=== PATIENT | female | born 1940 | race Caucasian/White ===

== ENCOUNTER 2024-06-04 08:04 | Emergency (ER) | payer OTHER, SELFPAY ==
[2024-06-04 08:35] VITALS: BMI 23.0
[2024-06-04 08:36] VITALS: BP 154/82
[2024-06-04 08:59] LABS: Urine Albumin Negative (Neg - Trace); Urine Bilirubin Negative (Negative); Urine Character Clear (Clear); Urine Color Yellow; Urine Glucose Negative (Negative); Urine Ketone Negative (Negative); Urine Leukocyte Negative (Negative); Urine Nitrite Negative (Negative); Urine Occult Blood Negative (Negative); Urine Specific Gravity 1.005 (<1.030); Urine Urobilinogen Negative (Neg - 1+)
[2024-06-04 09:00] VITALS: BP 155/79
[2024-06-04 09:07] LABS: % Basophils 0.5 % (0-2); % Eosinophils 2.5 % (0-6); % Immature Granulocytes 0.5 % (0-0.5); % Lymphocytes 14.6 % (20.5-51.1); % Monocytes 9.1 % (1.7-9.3); % Neutrophils 72.8 % (42.2-75.2); ALT (SGPT) 27 U/L (0-35); AST (SGOT) 29 U/L (14-36); Absolute Basophils 0.1 10^3/uL (0-0.2); Absolute Eosinophils 0.3 10^3/uL (0-0.7); Absolute Immature Granulocytes 0.1 10^3/uL (0-0.05); Absolute Lymphocytes 1.5 10^3/uL (1.2-3.4); Absolute Monocytes 0.9 10^3/uL (0.1-0.6); Absolute Neutrophils 7.4 10^3/uL (1.4-6.5); Albumin 3.7 g/dl (3.5-5.0); Alkaline Phosphatase 154 U/L (38-126); Blood Urea Nitrogen 15 mg/dl (7-17); Calcium 9.1 mg/dl (8.4-10.2); Carbon Dioxide 26 mmol/L (22-30); Chloride 104 mmol/L (98-107); Estimated Creatinine Clearance 40 ml/min; Glucose 95 mg/dl (70-99); Hematocrit 33.9 % (37.0-47.0); Hemoglobin 11.6 g/dL (12.0-16.0); Mean Corp Hgb Conc. 34.2 g/dL (33.0-37.0); Mean Corpuscular Volume 90.6 fL (81.0-99.0); Mean Platelet Volume 10.8 fL (7.4-10.4); Nucleated Red Blood Cells % 0 %; Platelet Count 299 10^3/uL (130-400); Potassium 4.2 mmol/L (3.5-5.1); Red Blood Cell Count 3.74 10^6/uL (4.20-5.40); Red Cell Dist. Width 14.1 % (11.5-14.5); Sodium 135 mmol/L (135-145); Total Bilirubin 0.5 mg/dl (0.2-1.3); White Blood Cell Count 10.2 10^3/uL (4.8-10.8); eGFR > 60.00
--- NOTE | 2024-06-04 09:18 | ED.GENMED ---
History of Present Illness
General
Chief Complaint: Dizziness
Source: patient and ambulance crew
Exam Limitations: none
Time Seen by Provider: 06/04/24 09:03
Nursing documentation reviewed up to this point in time: agreed with
History of Present Illness
History of Present Illness:
84-year-old female presents emergency room complaining of headache, dizziness and weakness. She fell 2 weeks ago, and has been dizzy and weak with a headache ever since. There are no aggravating or alleviating factors. She did, however, feel more
dizzy when she got up and felt like she was leaning to the left. When she fell 2 weeks ago, she went to [place], and states that it x-rays of her neck and spine, and was diagnosed with compression fracture of T4 and a sternal fracture. She is
unsure if they performed any CT scans.
Past History
Past History
ED Past Medical History: GERD, HTN, Hypercholesterolemia, Psychiatric (anxiety) and Other (Sternal fracture, T4 compression fracture)
ED Past Surgical History: Other (Cyst on LIver removed, Benign)
Social History
Tobacco: Non-smoker
Alcohol: Occasional
Personal:
Living: with family
Review of Systems
Review of Systems
Allergies reviewed?: Yes
All Other Systems: Not applicable
Constitutional: Reports no symptoms
EENT: Reports no symptoms
Respiratory: Reports no symptoms
Cardiac: Reports no symptoms
ABD/GI: Reports no symptoms
: Reports no symptoms
Musculoskeletal: Reports neck pain and back pain
Skin: Reports no symptoms
Neurological: Reports dizzy and headache
Endocrine: Reports no symptoms
Hematologic/Lymphatic: Reports no symptoms
Psychiatric: Reports no symptoms
Phy Exam
Physical Exam
Physical Exam:
Physical Exam
General: no apparent distress, not acutely ill
Neck: supple. no meningeal signs. normal posterior pharynx
Heart: s1/s2 regular rate and rhythm, no murmur. equal radial
pulses.
HEENT: Pupils equal round reactive to light, EOMI
Lungs: no acute respiratory distress. clear bilaterally
Abdomen: normal bowel sounds. not tender. no CVAT
Neuro: alert and oriented. no focal neurological deficits cranial nerves II through XII intact
Skin: no rash
Psychiatric: well kept. interactive and cooperative
Extremities: no edema. no calf tenderness. negative homans. good distal pulses
Scores
NIH Stroke Score
Level of Consciousness: 0 - Alert
LOC Questions: 0-Answers both correctly
LOC Commands: 0-Performs both correctly
Best Horizontal Gaze: 0-Normal
Visual Prakash: 0=Normal, no visual loss
Facial Palsy: 0=Normal, symmetrical
Motor - Right Arm: 0=No drift 10 seconds
Motor - Left Arm: 0=No drift 10 seconds
Motor - Right Le-No drift 5 seconds
Motor - Left Le-No drift 5 seconds
Limb Ataxia: 0-Absent
Sensation: 0-Normal
Best Language: 0-No aphasia
Dysarthria: 0-Normal
Extinction and Inattention: 0-No abnormality
Total Score:: 0
Course
Orders/Labs/Results
Orders:
Orders
06/04/24 08:22
EKG [Electrocardiogram (*1)] Urgent
Reason for Study: Vertigo / Dizzy
EKG- Treatment ONCE
06/04/24 08:45
CMP [Comprehensive Metabolic Panel] Urgent
Complete Blood Count/With Diff Urgent
Urinalysis Reflex To Culture Urgent
Date Specimen was Collected: 06/04/24
Time Specimen was Collected: 08:38
06/04/24 09:17
CT Head & Neck Angio W/wo IV Urgent
Comment:
Reason For Exam: fall, head, neck pain, dizziness
Abnormal Lab Results
06/04/24
08:45
RBC 3.74 L 10^6/uL
(4.20-5.40)
Hgb 11.6 L g/dL
(12.0-16.0)
Hct 33.9 L %
(37.0-47.0)
MPV 10.8 H fL
(7.4-10.4)
Abs Immat Gran (auto) 0.1 H 10^3/uL
(0-0.05)
Absolute Neuts (auto) 7.4 H 10^3/uL
(1.4-6.5)
Absolute Monos (auto) 0.9 H 10^3/uL
(0.1-0.6)
Lymphocytes % 14.6 L %
(20.5-51.1)
Creatinine 0.5 L mg/dL
(0.6-1.0)
Alkaline Phosphatase 154 H U/L
(38-126)
Total Protein 6.0 L g/dl
(6.3-8.2)
06/04/24 08:45
06/04/24 08:45
Vital Signs
Initial and Last Documented VS:
Initial Vital Signs
Temp Pulse Resp Pulse Ox
98.2 F 89 16 95
06/04/24 08:25 06/04/24 08:25 06/04/24 08:25 06/04/24 08:25
Last Documented Vital Signs
Temp Pulse Resp BP Pulse Ox
98.2 F 95 25 182/94 94
06/04/24 08:25 06/04/24 12:30 06/04/24 12:30 06/04/24 12:00 06/04/24 12:30
MDM/Problems Addressed
Differential Diagnosis Includes:
CVA, vertigo, intracranial hemorrhage
MDM/Problems Addressed:
84-year-old female with dizziness, unclear etiology. No signs of intracranial hemorrhage or dissection. Do not suspect CVA. Incidental 2 mm basilar artery bulbous tip, possible small aneurysm. Discussed with Dr. Davidson, who recommends follow-up
with cerebrovascular neurosurgeon. Stable for discharge.
Chronic conditions affecting care: Other (Migraines)
*Radiology
Radiology exam reviewed: radiology read reviewed (CTA head and neck no acute findings, possible small aneurysm in basilar artery.)
*Pulse Oximetry
Patient hypoxic: no
*EKG
Interpreted by ED Provider?: Yes
EKG Intrepretation Date: 06/04/24
EKG Intrepretation Time: 08:27
Interpretation: normal
Comparison EKG: no changes
Heart Rate: 87
Rate: normal
Rhythm: sinus
[place]: normal axis
Interval: normal interval
QRS Pattern: normal QRS
Ischemia: no ischemia
*Range Conservationist Interpretation
Rate: normal
Interpretation: normal
Heart Rate: 85
Rhythm: sinus
*Critical Care Note
Total Time (30-74mins, 75-104mins- exclusive of procedures): Not Applicable
Patient Management
Social determinants of health affecting care: Strong social support
Discussion with other providers: Casualty Claims Supervisor (Neurosurgeon Dr. Davidson)
Escalation/DeEscalation of care consider admission/obs:
Admit not indicated
ED Attending Note
-
Portions of this chart may have been created with voice recognition software.� Occasional wrong word or��sound alike� substitutions may have occurred due to the inherent limitations of voice recognition software.
Discharge Plan
Departure
Patient Disposition: Home (Routine Discharge)
Date of Disposition: 06/04/24
Time of Disposition: 13:00
Patient with high blood pressure during this ER visit?: Yes
Condition: Good
Discharge Problem:
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
Instructions: Dizziness, Adult ED, Dizziness
Prescriptions:
No Action
lisinopril 5 MG tablet
5 mg PO DAILY
cyanocobalamin (vitamin B-12) 1,000 MCG tablet
1,000 mcg PO DAILY
acetaminophen 325 MG tablet
650 mg PO Q4HPRN PRN (Reason: mild pain/EAST/temp> 100.4F) Qty: 0 0RF
famotidine 20 MG tablet
20 mg PO BID 0RF
tramadol 50 MG tablet
50 mg PO Q8HPRN PRN (Reason: pain) Qty: 20 0RF
Referrals:
Sanna Mari MD [Non-Admitting Privileges] - Call in 1-3 days for appt
Sahara Lawrence MD [Family Provider] -
Activity Restrictions/Additional Instructions:
Follow-up with Dr. Mari at [facility] for further evaluation of the finding on your CT angiography. It was a small area that is possibly an aneurysm.
Interventions
Interventions:
*Risk Screen - Suicide Last Done: 06/04/24 08:25
*General Assessment Last Done: 06/04/24 08:25
*Neglect/Abuse Screening Last Done: 06/04/24 08:25
ED- Fall Risk Assessment Last Done: 06/04/24 08:35
*ED COVID-19 Vaccine History Last Done: 06/04/24 08:25
ED- Neurological Assessment Last Done: 06/04/24 08:35
ED- Cardiac Assessment Last Done: 06/04/24 08:35
ED Swallowing Screen Last Done: 06/04/24 08:55
Discharge Date and Time
Print Language: ESTONIAN
[2024-06-04 10:00] VITALS: BP 132/70
[2024-06-04 11:00] VITALS: BP 150/80
[2024-06-04 12:00] VITALS: BP 182/94
--- NOTE | 2024-06-04 15:39 | EDRN ---
Reviewed discharge instructions with patient. Verbalized understanding. Taken to lobby in wheelchair.
[2024-06-04 15:40] VITALS: BP 145/70
== END 2024-06-04 15:35 | disposition home or self-care (01) ==
LOC: EMR 08:04
PROVIDERS: Emergency Medicine; EMERGENCY PHYSICIAN Emergency Medicine; FAMILY PHYSICIAN Internal Medicine Geriatric Medicine
DX: R42 Dizziness and giddiness (principal); K21.9 Gastro-esophageal reflux disease without esophagitis; I10 Essential (primary) hypertension; E78.00 Pure hypercholesterolemia, unspecified; F41.9 Anxiety disorder, unspecified; I65.23 Occlusion and stenosis of bilateral carotid arteries; I67.82 Cerebral ischemia
CPT/HCPCS: 99284; 70496; 70498; 80053; 81003; 85025; 93005; Q9967

== ENCOUNTER 2024-06-14 11:30 | Emergency (ER) | payer OTHER, SELFPAY ==
[2024-06-14 11:33] VITALS: BP 160/77; BMI 20.3
[2024-06-14 11:34] VITALS: BP 160/77
--- NOTE | 2024-06-14 12:44 | ED.MUSCINJ ---
HPI-Injury
General
Chief Complaint: Fall
Source: patient
Exam Limitations: none
Time Seen by Provider: 06/14/24 11:42
History of Present Illness-Injury
Initial Injury comments:
84-year-old female presents from [facility] independent living after a fall. She states she lost her balance and fell onto her knee and then fell backwards. She complains of left knee pain and neck pain. She thinks may have hit her head. No
anticoagulants. She typically ambulates with a walker. No other complaints at this time
Past History
Past History
ED Past Medical History: GERD, HTN, Hypercholesterolemia, Psychiatric (anxiety) and Other (Sternal fracture, T4 compression fracture)
ED Past Surgical History: Other (Cyst on LIver removed, Benign)
Social History
Tobacco: Non-smoker
Alcohol: Occasional
Personal:
Living: with family
Phy Exam
Physical Exam
Physical Exam:
General: Well-appearing female no acute respiratory distress
HEENT: Normocephalic no obvious scalp abrasion or hematoma
Heart: Regular rate and rhythm
Lungs: Clear no wheeze
Abdomen soft nontender nondistended no guarding rebound normal bowel sounds
Extremities: No cyanosis or edema
Musculoskeletal exam: Left knee tender anteriorly without deformity. The cervical spine mildly diffusely tender
Injury Course
Orders/Labs/Results
Orders:
Orders
06/14/24 12:01
CT Cervical Spine W/o Iv Contr Urgent
Comment:
Reason For Exam: fall
CT Head W/o Iv Contrast Urgent
Comment:
Reason For Exam: fall
CR Knee - Left 4 Or More View* Urgent
Comment:
Reason For Exam: fall
MDM/Problems Addressed
Differential Diagnosis Includes:
Mechanical fall. Left knee pain and neck pain. Consider fracture versus contusion. CT of head and cervical spine pending. X-ray left knee pending.
*Critical Care Note
Total Time (30-74mins, 75-104mins- exclusive of procedures): Not Applicable
Update Note
Update Note:
CT of head and cervical spine negative x-ray left knee negative. Patient reassured. Stable for discharge
ED Attending Note
-
Portions of this chart may have been created with voice recognition software.� Occasional wrong word or��sound alike� substitutions may have occurred due to the inherent limitations of voice recognition software.
Discharge Plan
Departure
Patient Disposition: Home (Routine Discharge)
Date of Disposition: 06/14/24
Time of Disposition: 13:46
Patient with high blood pressure during this ER visit?: No
Discharge Problem:
cervical strain
Instructions: Preventing falls in adults
Prescriptions:
No Action
lisinopril 5 MG tablet
5 mg PO DAILY
cyanocobalamin (vitamin B-12) 1,000 MCG tablet
1,000 mcg PO DAILY
acetaminophen 325 MG tablet
650 mg PO Q4HPRN PRN (Reason: mild pain/EAST/temp> 100.4F) Qty: 0 0RF
famotidine 20 MG tablet
20 mg PO BID 0RF
tramadol 50 MG tablet
50 mg PO Q8HPRN PRN (Reason: pain) Qty: 20 0RF
Referrals:
Sahara Lawrence MD [Family Provider] -
Activity Restrictions/Additional Instructions:
Return if needed
Interventions
Interventions:
*Risk Screen - Suicide Last Done: 06/14/24 11:33
*General Assessment Last Done: 06/14/24 11:33
*Neglect/Abuse Screening Last Done: 06/14/24 11:33
ED- Fall Risk Assessment Last Done: 06/14/24 11:39
*ED COVID-19 Vaccine History Last Done: 06/14/24 11:33
*Nursing Disposition Last Done: 06/14/24 15:28
ED-Musculoskeletal Assessment Last Done: 06/14/24 11:39
ED- Neurological Assessment Last Done: 06/14/24 11:39
ED-Skin Assessment Last Done: 06/14/24 11:39
Discharge Date and Time
Discharge Date/Time: 06/14/24 15:30
Print Language: ITALIAN
[2024-06-14 15:28] VITALS: BP 156/78
== END 2024-06-14 15:30 | disposition home or self-care (01) ==
LOC: EMR 11:30
PROVIDERS: EMERGENCY PHYSICIAN Student in an Organized Health Care Education/Training Program; FAMILY PHYSICIAN Internal Medicine Geriatric Medicine
DX: S16.1XXA Strain of muscle, fascia and tendon at neck level, initial encounter (principal); M25.562 Pain in left knee; W19.XXXA Unspecified fall, initial encounter; I10 Essential (primary) hypertension; E78.00 Pure hypercholesterolemia, unspecified; M48.54XA Collapsed vertebra, not elsewhere classified, thoracic region, initial encounter for fracture; K21.9 Gastro-esophageal reflux disease without esophagitis; F41.9 Anxiety disorder, unspecified; Z88.0 Allergy status to penicillin
CPT/HCPCS: 99284; 70450; 72125; 73564

== ENCOUNTER 2024-08-02 12:10 | Emergency (ER) | payer SELFPAY ==
[2024-08-02] VITALS (13 sets, daily range): BP systolic 155–224; BP diastolic 84–137; PULSE 79–90
--- NOTE | 2024-08-02 12:38 | ED.GENMED ---
History of Present Illness
General
Chief Complaint: Abdominal Pain
Source: patient
Exam Limitations: none
Time Seen by Provider: 08/02/24 12:12
Nursing documentation reviewed up to this point in time: agreed with
History of Present Illness
History of Present Illness:
pt is a 84 y/o F h/o HTN, HLD, chornic constipation, anxiety
says she woke up at 2 am and took xanax 0.5 mg which is typical for her
then around 3 or 4 am she went to stand up to go to the bathroom and felt dizzy like the room was spinning
she laid back down and propped herslef up and the dizziness stopped. she went back to sleep some
and then she had to move bowels, had some abdominal pain; and needed to disimpact herself which is usual fo rher recently in the past few months
she had taken stool softener and doculax last night
pt says her abd pain resolved after she di d the manual disimpaction
she denies fever, chills, nausea, vomiting, cp, sob, headache, vision changes, slurred speech, weakness.
pt says she has never had vertigo like symptoms before
she can turn her head easily side to side in the stretcher without difficulty
she thinks maybe she was dizzy from taking the xanax
pt hasn't been eating as well recently; doesn't really have an appetite;
she did fall a few months ago and had some idzziness following that fall
she hit the back of her head
pt had CTA showing small bulbous appearance of basilar artery;w as told to F/U nguyễn Caballero but she never did
Past History
Past History
ED Past Medical History: GERD, HTN, Hypercholesterolemia, Psychiatric (anxiety) and Other (Sternal fracture, T4 compression fracture)
ED Past Surgical History: Other (Cyst on LIver removed, Benign)
Social History
Tobacco: Non-smoker
Alcohol: Occasional
Personal:
Living: with family
Review of Systems
Review of Systems
Allergies reviewed?: Yes
All Other Systems: Not applicable
Phy Exam
Physical Exam
Physical Exam:
henERAL: Alert , in no apparent distress
HEAD: NCAT
EYE: pupils equal and reactive, no nystagmus, no photophobia
NECK: severe kyphosis, limited ROM due to arthritis
ENT: o/p clr, mmm.
CARDIAC: Regular rate and rhythm . no edema
LUNGS: Clear breath sounds bilaterally, no acute respiratory distress, no wheezes/rales/rhonchi
ABDOMEN: Soft, without focal tenderness, no r/g, no cvat
NEUROLOGICAL: Alert and orientedx 4, cn intact, no facial asymmetry, 5/5 strength in UE/LE, sensation intact, romberg neg, ambulates with her wlaker steadily, neg pronator drift
SKIN: Warm and dry, skin intact.
MUSCULOSKELETAL: No edema, well perfused.
PSYCH: Normal and appropriate interaction.
Course
Orders/Labs/Results
Orders:
Orders
08/02/24 12:28
Complete Blood Count/With Diff Urgent
Comprehensive Metabolic Panel Urgent
Lipase Urgent
08/02/24 12:33
Electrocardiogram (*1) Urgent
Reason for Study: Vertigo / Dizzy
EKG- Treatment ONCE
Orthostatic VS- Treatment ONCE
Obstruct Series W/PA Chest [CR Obstruct Series W/pa Chest] Urgent
Comment:
Reason For Exam: constipation
08/02/24 14:15
CT Head & Neck Angio W/wo IV Urgent
Comment:
Reason For Exam: HEADACHE, DIZZY; ? ANEURYSM
08/02/24 18:21
Lisinopril [Zestril] 5 mg .ROUTE .STK-MED ONE
08/02/24 18:30
Lisinopril [Zestril] 5 mg PO NOW STA
08/02/24 18:57
Labetalol HCl [Trandate] 10 mg IV NOW STA
Abnormal Lab Results
08/02/24
12:28
RBC 3.81 L 10^6/uL
(4.20-5.40)
Hgb 11.9 L g/dL
(12.0-16.0)
Hct 35.2 L %
(37.0-47.0)
MCH 31.2 H pg
(27.0-31.0)
RDW 15.6 H %
(11.5-14.5)
MPV 11.1 H fL
(7.4-10.4)
Absolute Neuts (auto) 6.7 H 10^3/uL
(1.4-6.5)
Absolute Monos (auto) 0.8 H 10^3/uL
(0.1-0.6)
Lymphocytes % 14.6 L %
(20.5-51.1)
Sodium 134 L mmol/L
(135-145)
Creatinine 0.5 L mg/dL
(0.6-1.0)
08/02/24 12:28
08/02/24 12:28
Vital Signs
Initial and Last Documented VS:
Initial Vital Signs
Pulse Resp BP Pulse Ox
82 18 171/89 96
08/02/24 12:15 08/02/24 12:15 08/02/24 12:15 08/02/24 12:15
Last Documented Vital Signs
Temp Pulse Resp BP Pulse Ox
98.7 F 81 22 224/108 96
08/02/24 12:17 08/02/24 19:30 08/02/24 19:30 08/02/24 19:30 08/02/24 19:30
MDM/Problems Addressed
Differential Diagnosis Includes:
vertigo, lightheaded/orthostasis, medication side effect, constipation, less likely stroke, dissection
MDM/Problems Addressed:
84 y/o F with htn, hld
chornic constipation'
anxiety
here for mlutiple complaitns
woke up in the night and felt dizziness, that resolved with lying down
she has not had the dizziness recur
she has chorni cnstiopation and often times manually disimpacts herself
she did that today and she now no longer has abd pain
here she is repeatedly discussing about how 2 mo ago she fell and hit her head and has had intermittent dizzienss since
on her initial imaging in 06/01 cta head/neck she had a bulbous appearance of her basilar artery which could be an aneurysm
she was reocmmended to f/u neurosg
she has not had that eavluation
she thought she had a headache last week but it resolved; she is requestin CTA to reevaluate this area
despite vania ther dizziness has resolved, orhtos neg,labs urnemarkable
CTA still shows this minimal bulbous appearance of basilar region
3 mm
no change
when reassessed pt was pushign to have herself moved to the assisted living/inaptient medical side of [facility]
she feels that it is too much to be in independent
turns out this is an ogoing issue for her
she has a lot of anxiety about living by herself
but i spoke with patient's daughter and RN at [facility] - they are in the process of movin gher over but it will take time [facility] some nights and family also is there frequently
daughter was quite comfortable with her going back; says that with any small symptom causes her anxiety
pt an ddaughter comfortable with discharge back to facility
*Critical Care Note
Total Time (30-74mins, 75-104mins- exclusive of procedures): Not Applicable
ED Attending Note
-
Portions of this chart may have been created with voice recognition software.� Occasional wrong word or��sound alike� substitutions may have occurred due to the inherent limitations of voice recognition software.
Discharge Plan
Departure
Patient Disposition: Home (Routine Discharge)
Date of Disposition: 08/02/24
Time of Disposition: 16:13
Patient with high blood pressure during this ER visit?: Yes
Condition: Fair
Discharge Problem:
Dizziness, Constipation
Instructions: Constipation, Adult (DC), BLOOD PRESSURE
Prescriptions:
No Action
lisinopril 5 MG tablet
5 mg PO DAILY
cyanocobalamin (vitamin B-12) 1,000 MCG tablet
1,000 mcg PO DAILY
acetaminophen 325 MG tablet
650 mg PO Q4HPRN PRN (Reason: mild pain/EAST/temp> 100.4F) Qty: 0 0RF
famotidine 20 MG tablet
20 mg PO BID 0RF
tramadol 50 MG tablet
50 mg PO Q8HPRN PRN (Reason: pain) Qty: 20 0RF
Referrals:
Sahara Lawrence MD [Family Provider] - Follow up in 2-3 days
Activity Restrictions/Additional Instructions:
Were not sure what caused her dizziness but it seems to have resolved. Your CAT scan still shows that small irregularity one of your arteries which You should see a specialist for as recommended previously.
This is unlikely to be causing your symptoms.
Make sure to stay hydrated. Take your blood pressure medication
When you get up in the middle of the night make sure to sit on the side of the bed for moment before you stand up. Always use your walker.
For your constipation you should take Metamucil or Colace daily. You could use MiraLAX if needed. Follow-up with your doctor this week or next week. Return for any concerns
Interventions
Interventions:
*Risk Screen - Suicide Last Done: 08/02/24 12:17
*General Assessment Last Done: 08/02/24 12:17
*Neglect/Abuse Screening Last Done: 08/02/24 12:17
ED- Fall Risk Assessment Last Done: 08/02/24 12:17
*ED COVID-19 Vaccine History Last Done: 08/02/24 12:17
*Nursing Disposition Last Done: 08/02/24 19:39
VY-Gfxanw-Jsrdduybgt Assessment Last Done: 08/02/24 12:17
Discharge Date and Time
Discharge Date/Time: 08/02/24 19:40
Print Language: IRAQI
[2024-08-02 12:39] LABS: % Basophils 0.4 % (0-2); % Eosinophils 1.6 % (0-6); % Immature Granulocytes 0.4 % (0-0.5); % Lymphocytes 14.6 % (20.5-51.1); % Monocytes 8.5 % (1.7-9.3); % Neutrophils 74.5 % (42.2-75.2); Absolute Eosinophils 0.1 10^3/uL (0-0.7); Absolute Lymphocytes 1.3 10^3/uL (1.2-3.4); Absolute Monocytes 0.8 10^3/uL (0.1-0.6); Absolute Neutrophils 6.7 10^3/uL (1.4-6.5); Hematocrit 35.2 % (37.0-47.0); Hemoglobin 11.9 g/dL (12.0-16.0); Mean Corp Hgb Conc. 33.8 g/dL (33.0-37.0); Mean Corpuscular Hgb 31.2 pg (27.0-31.0); Mean Corpuscular Volume 92.4 fL (81.0-99.0); Mean Platelet Volume 11.1 fL (7.4-10.4); Nucleated Red Blood Cells % 0 %; Platelet Count 239 10^3/uL (130-400); Red Blood Cell Count 3.81 10^6/uL (4.20-5.40); Red Cell Dist. Width 15.6 % (11.5-14.5)
[2024-08-02 12:56] LABS: ALT (SGPT) 27 U/L (0-35); AST (SGOT) 32 U/L (14-36); Albumin 4.2 g/dl (3.5-5.0); Alkaline Phosphatase 92 U/L (38-126); Blood Urea Nitrogen 12 mg/dl (7-17); Calcium 9.6 mg/dl (8.4-10.2); Carbon Dioxide 22 mmol/L (22-30); Chloride 100 mmol/L (98-107); Glucose 95 mg/dl (70-99); Lipase 112 U/L (23-300); Potassium 4.3 mmol/L (3.5-5.1); Sodium 134 mmol/L (135-145); Total Bilirubin 0.5 mg/dl (0.2-1.3); Total Protein 6.4 g/dl (6.3-8.2); eGFR > 60.00
[2024-08-02] MEDS: ZESTRIL 5 MG PO (18:30)
[2024-08-02] MEDS: TRANDATE 10 MG IV (19:02)
== END 2024-08-02 19:40 | disposition home or self-care (01) ==
LOC: EMR 12:10
PROVIDERS: Physician Assistant; EMERGENCY PHYSICIAN Student in an Organized Health Care Education/Training Program; FAMILY PHYSICIAN Internal Medicine Geriatric Medicine
DX: K59.09 Other constipation (principal); R42 Dizziness and giddiness; R10.9 Unspecified abdominal pain; I10 Essential (primary) hypertension; E78.00 Pure hypercholesterolemia, unspecified; F41.9 Anxiety disorder, unspecified; M19.90 Unspecified osteoarthritis, unspecified site; G43.909 Migraine, unspecified, not intractable, without status migrainosus; K21.9 Gastro-esophageal reflux disease without esophagitis; Z91.81 History of falling; Z87.820 Personal history of traumatic brain injury; Z87.891 Personal history of nicotine dependence; Z88.0 Allergy status to penicillin
CPT/HCPCS: 99285; 96374; 70496; 70498; 74022; 80053; 83690; 85025; 93005; Q9967

== ENCOUNTER 2024-08-08 14:11 | Emergency (ER) | payer OTHER, SELFPAY ==
--- NOTE | 2024-08-08 14:44 | ED.GENMED ---
History of Present Illness
General
Chief Complaint: Musculo-Skeletal Complaint
Source: patient
Exam Limitations: none
Time Seen by Provider: 08/08/24 14:43
Nursing documentation reviewed up to this point in time: agreed with
History of Present Illness
History of Present Illness:
84-year-old female with past medical history of migraines, hypertension, hyperlipidemia presents emergency department today with concerns of left shoulder pain and neck pain following a fall. Patient states that she fell approximately week ago and
has since had persistent shoulder pain. Patient states that she was going to stand from a sitting position when she felt that her knees gave out and she fell onto her left side. She needed the assistance of her aids to help her up. She did not loose
consciousness. She denied dizziness or palpitations. She was never evaluated in the emergency department for this fall. Patient states that she used to ambulate with a walker but now since she has had a few falls recently, she now uses a wheel chair
at baseline. Patient did have Tylenol 2 hours ago. I spoke to a physician at [facility] who stated that she wanted to monitor patient on an outpatient basis at [facility] and treat her symptoms with Tylenol. The physician did not feel that
emergency department evaluation was necessary at this time. Patient currently denies chest pain, shortness of breath, abdominal pain. She denies headache. She does not use any anticoagulants/antiplatelet agents.
Past History
Past History
ED Past Medical History: GERD, HTN, Hypercholesterolemia, Psychiatric (anxiety) and Other (Sternal fracture, T4 compression fracture)
ED Past Surgical History: Other (Cyst on LIver removed, Benign)
Social History
Tobacco: Non-smoker
Alcohol: Occasional
Personal:
Living: with family
Review of Systems
Review of Systems
All Other Systems: ROS reviewed and negative except as documented in HPI and ROS
Phy Exam
Physical Exam
Physical Exam:
General: Patient is well appearing and in no acute distress; non-toxic
Skin: Warm and dry, ecchymosis noted over the left anterior shoulder
Head: Normocephalic, atraumatic. No palpable hematoma.
Eyes: Sclera non-icteric. EOMs intact. PERRLA.
Neck: Mild tenderness to palpation of the cervical spine with no palpable bony deformities.
Cardiac: Regular rate and rhythm, no murmurs. No tenderness to palpation over the external chest wall, no crepitus.
Peripheral Vascular: No lower extremity swelling or edema.
Pulm: Normal respiratory effort, no wheezes, rales, or rhonchi
Abdomen: No abdominal tenderness to palpation
Musculoskeletal: Full ROM of bilateral upper extremities. 5/5 strength bilaterally. No palpable bony deformities of the left upper extremity. Tenderness to palpation over the thoracic spine and paraspinal muscles.
Neuro: CN II-XII intact, no focal neurologic deficits.
Psychiatric: Appropriate mood and affect.
Course
Orders/Labs/Results
Orders:
Orders
08/08/24 14:58
CT Cervical Spine W/o Iv Contr Urgent
Comment:
Reason For Exam: midline tenderness following fall
08/08/24 15:23
CR Thoracic Spine 3 Views Urgent
Comment:
Reason For Exam: midline spinal tenderness following fall
08/08/24 15:45
CR Shoulder, Trauma - Left Urgent
Comment:
Reason For Exam: left anterior shoulder pain
08/08/24 17:57
Shoulder Immobilizer Left- Tx ONCE
08/08/24 17:58
Acetaminophen [Tylenol] 650 mg PO NOW STA
Vital Signs
Initial and Last Documented VS:
Initial Vital Signs
Temp Pulse Resp BP Pulse Ox
97.6 F 70 16 135/65 93
08/08/24 15:10 08/08/24 15:10 08/08/24 15:10 08/08/24 15:10 08/08/24 15:10
Last Documented Vital Signs
Temp Pulse Resp BP Pulse Ox
97.6 F 70 16 135/65 93
08/08/24 15:10 08/08/24 15:10 08/08/24 15:10 08/08/24 15:10 08/08/24 15:10
MDM/Problems Addressed
Differential Diagnosis Includes:
ddx include clavicle fracture, musculoskeletal strain/sprain, vertebral fracture
MDM/Problems Addressed:
84-year-old female with past medical history of hypertension, hyperlipidemia, ambulatory dysfunction presents emergency department today with concerns of left shoulder pain following a fall that occurred a week ago. Patient does not take any blood
thinners. Patient reports that she was standing from a sitting position when she felt her knees give out and she subsequently fell onto her left side. Patient states that she did not hit her head at this time, she has not had any headaches. She
also complains of neck pain which she does states she has chronically but she feels like has gotten acutely worse after the fall. On exam, she is chronically ill-appearing, she has no signs of trauma on the head, no palpable hematoma, and
tenderness palpation with facial bones, she does have a midline tenderness over the cervical spine. She also has ecchymosis noted over the left anterior shoulder but I do not feel any bony deformities. She had a CT of the cervical spine which
showed multilevel cervical degenerative changes but no acute fracture. Also showed stable old 50% compression fractures of T2 and T4. Shoulder x-ray showed nondisplaced clavicle fracture. Discussed findings with patient. Discussed shoulder
immobilization and orthopedics follow-up. Patient expressed understanding. Patient states that she has a orthopedist with [facility] that she likes to use. I also discussed this with her son over the phone who is aware of plan. Patient stable for
discharge.
Chronic conditions affecting care:
Dementia, hypertension hyperlipidemia
*Pulse Oximetry
Patient hypoxic: no
*Critical Care Note
Total Time (30-74mins, 75-104mins- exclusive of procedures): Not Applicable
Data Reviewed
Review of Other/Old Records Reveals: Records (Reviewed irritation and mentation from 08/02/2024, patient seen for constipation and intermittent dizziness) and Discharge Summary (Reviewed discharge summary from 04/05/2017Patient seen for spontaneous
left pelvic fracture with negative bone scan from malignancy as well as a UTI.)
Source: patient and records
Prescriptions/Medications Considered But Not Given:
Considered opioid pain medication however patient states that she will take Tylenol as needed for her pain
Patient Management
Escalation/DeEscalation of care consider admission/obs:
Admit not indicated, patient stable for discharge. Reviewed case and treatment plan with my attending Dr. Fortune.
ED Attending Note
-
Portions of this chart may have been created with voice recognition software.� Occasional wrong word or��sound alike� substitutions may have occurred due to the inherent limitations of voice recognition software.
Discharge Plan
Departure
Patient Disposition: Home (Routine Discharge)
Date of Disposition: 08/08/24
Time of Disposition: 18:11
Patient with high blood pressure during this ER visit?: Yes
Condition: Good
Discharge Problem:
Closed fracture of distal clavicle
Instructions: Clavicle fracture, How to Use a Shoulder Sling, BLOOD PRESSURE
Prescriptions:
No Action
lisinopril 5 MG tablet
5 mg PO DAILY
cyanocobalamin (vitamin B-12) 1,000 MCG tablet
1,000 mcg PO DAILY
acetaminophen 325 MG tablet
650 mg PO Q4HPRN PRN (Reason: mild pain/EAST/temp> 100.4F) Qty: 0 0RF
famotidine 20 MG tablet
20 mg PO BID 0RF
tramadol 50 MG tablet
50 mg PO Q8HPRN PRN (Reason: pain) Qty: 20 0RF
Referrals:
Heather Muse I., DO [Active] - Call in 1-3 days for appt
Sahara Lawrence MD [Family Provider] -
Activity Restrictions/Additional Instructions:
Your shoulder x-ray revealed osteopenia with acute nondisplaced oblique fracture of the distal aspect of the left clavicle.
Please call the attached number to schedule an appointment with orthopedics. Please wear the shoulder immobilizer for 4-5 weeks. Please follow-up with your physician at [facility].
Return to the emergency department should you experience loss of sensation in your arm, and acute worsening of your pain, swelling, pallor, chest pain, shortness of breath, or any other symptom symptoms concerning to you.
I recommend continued home health aide care as well as transition to assisted living.
Interventions
Interventions:
*Risk Screen - Suicide Last Done: 08/08/24 14:58
*General Assessment Last Done: 08/08/24 14:58
*Neglect/Abuse Screening Last Done: 08/08/24 14:58
ED- Fall Risk Assessment Last Done: 08/08/24 14:58
*ED COVID-19 Vaccine History Last Done: 08/08/24 14:58
*Nursing Disposition Last Done: 08/08/24 18:42
ED-Musculoskeletal Assessment Last Done: 08/08/24 14:58
Discharge Date and Time
Print Language: [email or web address]
[2024-08-08 14:58] VITALS: BMI 23.9
[2024-08-08 15:10] VITALS: BP 135/65
[2024-08-08] MEDS: TYLENOL 650 MG PO (18:25)
== END 2024-08-08 19:19 | disposition home or self-care (01) ==
LOC: EMR 14:11
PROVIDERS: EMERGENCY PHYSICIAN Emergency Medicine; FAMILY PHYSICIAN Internal Medicine Geriatric Medicine
DX: S42.032A Displaced fracture of lateral end of left clavicle, initial encounter for closed fracture (principal); W18.30XA Fall on same level, unspecified, initial encounter; E78.00 Pure hypercholesterolemia, unspecified; F03.90 Unspecified dementia, unspecified severity, without behavioral disturbance, psychotic disturbance, mood disturbance, and anxiety; I10 Essential (primary) hypertension; K21.9 Gastro-esophageal reflux disease without esophagitis; F41.9 Anxiety disorder, unspecified
CPT/HCPCS: 99284; 72072; 72125; 73030